=== PATIENT | male | born 1960 | race Caucasian/White ===

== ENCOUNTER 2017-03-14 00:06 | Emergency (ER) | payer BC, OTHER ==
[2017-03-14 00:34] VITALS: BP 140/78
--- NOTE | 2017-03-14 01:02 | ERNOTE ---
Abdominal HPI - General Chief Complaint: Abdominal Pain Time Seen by Provider: 03/14/17 00:54 Source: patient Exam Limitations: no limitations - Immun/Allergies/Home Medications Immunizatons: IMMUNIZATION HX Immunizations Up to Date No History of Influenza Vaccine No Hx Pneumococcal Vaccination No Allergies/Adverse Reactions: Allergies Penicillins Allergy (Unknown, Verified 10/20/16 19:01) Other iv contrast Allergy (Unknown, Uncoded 10/20/16 19:01) Home Medications: HOME MEDICATIONS Tamsulosin HCl [Flomax] 0.4 mg PO BID 07/24/15 [Last Taken 10/07/16 08:00] Acetaminophen [Tylenol] 650 mg PO Q6H PRN #60 tablet 10/09/16 [Last Taken Unknown] Dabigatran Etexilate Mesylate [Pradaxa] 150 mg PO BID #60 capsule 10/09/16 [ Last Taken Unknown] - History of Present Illness Narrative: Pt has had RUQ abdominal pain for 3-4 months Timing: getting worse Quality: moderate Associated Symptoms: Present: denies symptoms Review of Systems - Review of Systems Constitutional: Absent: recent illness, fever, chills EYE: Present: no symptoms reported ENT: Present: no symptoms reported Respiratory: Present: no symptoms reported Cardiology: Present: no symptoms reported Gastrointestinal/Abdominal: Present: See HPI, constipation. Absent: diarrhea Genitourinary: Present: no symptoms reported Musculoskeletal: Present: no symptoms reported Skin: Present: no symptoms reported Neurological: Present: no symptoms reported Endocrine: Present: no symptoms reported Hematologic/Lymphatic: Present: no symptoms reported Psych: Present: no symptoms reported - Patient's Past Medical History Patient History - Medical: Other Patient History - Cardiac/Respiratory: Pulmonary Embolism Patient History - Cancer: Stomach Patient History - Surgical Procedures: Appendectomy, Colonoscopy, EGD, Other Patient History - Other: None - Family History Mother Family History - Medical: History Unknown Father Family History - Medical: History Unknown - Social History Living Situations: significant other Abuse History: No History of abuse Psych History: No pertinent hx Does anyone smoke in the home?: No Alcohol Use: rarely Drug Use: none - Immunizations Immunizations Up to Date: No Hx Pneumococcal Vaccination: No History of Influenza Vaccine: No Physical Exam - Physical Exam General Appearance: Present: wd/wn, alert, no apparent distress Ears, Nose, Throat: Present: normal ENT inspection Neck: Present: normal inspection, nontender Respiratory: Present: no respiratory distress Gastrointestinal/Abdominal: Present: normal bowel sounds, nondistended, tenderness - RUQ and RLQ. Absent: guarding, rebound Back Exam: Present: normal inspection, normal range of motion, no CVA tenderness Extremity Exam: Present: normal inspection, normal range of motion Neurological Exam: Present: alert, oriented, normal mood/affect Skin Exam: Present: normal color, warm/dry ED Progress - Results and Orders Patient's Lab Results:: I have reviewed the patient's lab results. Results and Orders: Laboratory Tests 03/14/17 03/14/17 01:08 01:08 WBC 8.5 Hgb 13.8 Hct 40.1 L Plt Count 207 Sodium 138 Potassium 3.6 Chloride 102 Carbon Dioxide 28.4 Anion Gap 11.2 BUN 24 H BUN/Creatinine Ratio 26.1 H Random Glucose 150 H Calcium 9.0 Calcium Adj for Albumin 9.1 Total Bilirubin 0.5 AST 20 ALT 24 Alkaline Phosphatase 63 Total Protein 7.3 Albumin 3.5 Amylase 62 Lipase 135 - Vital Signs Patient's Vital Signs:: I have reviewed the patient's vital signs. Vital Signs: Vital Signs 03/14/17 00:06 Temperature 36.7 C Pulse Rate 71 Respiratory 18 Rate Blood Pressure 140/78 O2 Sat by Pulse 95 Oximetry - X-Ray X-Ray #1 X-Ray: abdomen Interpretation: Interp. by me X-ray Comments: moderate retained stool especially right side - Progress/Reassessment Chief Complaint: Abdominal Pain Progress:: Unchanged Progress Note-Subjective: 03/14/17 02:33 Discussed results with patient. He states he has MOM at home and will use that tonight. Departure - Departure Clinical Impression: Constipation Qualifiers: Constipation type: chronic idiopathic constipation Qualified Code(s): K59.04 - Chronic idiopathic constipation Disposition: Home self-care Condition: Good Instructions: Constipation, Adult, [id number] Referrals: Mehdi Baxter MD [Primary Care Provider] -
--- OUTSIDE RECORDS SUMMARY | 2017-03-14 01:11 | XMS REPORT | Continuity of Care Document ---
:1960 Author Organization [facility] ([facility]) Address [place] [address] Phone [phone] Care Team Providers Name Role Phone Mehdi Baxter Primary Care Provider [phone] Source Comments This disclosure is being made pursuant to the Care Everywhere program, applicable federal and state laws, and may not contain all informaitonavailable regarding this patient.[facility] ([facility]) Active Allergies and Adverse Reactions Allergen Noted Date Severity Reactions Comments Iodinated Contrast Media - Oral And Iv Dye 06/22/2016 Angioedema Penicillins 07/07/2016 Rash Current Medications Prescription Sig. Disp. Refills Start Date End Date Status tamsulosin 0.4 mg Take 0.8 mg by Active capsule mouth daily. PRADAXA 150 mg capsule Take 150 mg by 2 10/09/2016 Active mouth 2 times daily. diphenhydrAMINE 50 mg Take 1 capsule 1 capsule 5 10/26/2016 Active capsule (50 mg total) by mouth as needed. Take 50 mg [address] scan. PREDNISONE 50 mg tablet Take 50 mg 13 3 tablet 5 10/26/2016 Active hours, 7 hours, and [address] for a total of 3 doses. 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 Factor V Leiden mutation 07/08/2016 History of TIA (transient ischemic attack) 07/08/2016 Benign prostatic hyperplasia without lower urinary tract symptoms 07/08/2016 Most Recent Encounters Date Type Specialty Providers Description 02/14/2017 Orders/Notes [facility] Justin Stein MD 01/25/2017 Office Visit Med Hematology and Justin Stein MD Dx: Malignant Oncology gastrointestinal stromal tumor (GIST) of stomach (Primary Dx) 01/25/2017 Office Visit Srg Oncology Justin Stein MD Dx: Malignant Kannan Gay gastrointestinal stromal tumor (GIST) of stomach (Primary Dx) 01/25/2017 Office Visit Med Hematology and Justin Stein MD Dx: GIST Oncology Romain, (gastrointestinal Norman Chen MD stroma tumor), malignant, colon 01/25/2017 Hospital Radiology Nino Kaminski, Dx: GIST Encounter (gastrointestinal stroma tumor), malignant, colon Social History Tobacco Use Types Packs/Day Years Used Date Former Smoker Cigarettes 0.25 Quit: 11/19/1979 Smokeless Tobacco: Never Used Alcohol Use Drinks/Week oz/Week Comments Yes 1 Cans of beer 0.6 Last Filed Vital Signs Vital Sign Reading Time Taken Blood Pressure 153/79 01/25/2017 10:43 AM [employer]IC [employer] Pulse 73 01/25/2017 10:43 AM [employer] Temperature 36.3 C (97.3 F) 01/25/2017 10:43 AM [employer] Respiratory Rate 16 01/25/2017 10:43 AM [employer] Height 1.778 m (5' 10") 01/25/2017 9:15 AM [employer] Weight 129 kg (284 lb 6.3 oz) 01/25/2017 10:43 AM [employer] Body Mass Index 40.81 01/25/2017 10:43 AM [employer] Oxygen Saturation 95% 01/25/2017 10:43 AM [employer] Plan of Care Date Type Specialty Providers Description 04/26/2017 Appointment Srg Oncology Justin Stein MD [address] [place] [address] [phone] (Fax) Chief Comp: Patient Kannan Gay MD [address] [place] [address] [phone] (Fax) Reported Reason For Visit 04/26/2017 Appointment Med Hematology and Justin Stein MD Chief Comp: Patient Oncology [address] [facility] [place] [address] Visit [phone] (Fax) Health Maintenance Due Date Last Done Comments HCV Screening 1960 Hepatitis B Vaccine (1 of 3 - Primary Series) 1960 Tdap Vaccine 1969 Lipid Disorder Screening 1976 MMR Vaccine 1976 Td Vaccine 1976 Pneumococcal Vaccine (1 of 3 - PCV13) 1977 Colonoscopy 04/16/2008 Prostate Cancer Screening 2008 Influenza Vaccine: Seasonal Completed Results from Last [address] ABDOMEN& PELVIS W CONTRAST (44398) (01/25/2017 8:54 AM) Impressions Impression: 1. New thickening of the lateral conal fascia and lateral peritoneum in the right upper quadrant of the abdomen with a mild infiltration of the adjacent paracolic omentum. As the adjacent colon is unremarkable appearance, this suggests possibility of developing peritoneal carcinomatosis. 2. Chronic scarring in the right lung base. 3. Stable tiny liver lesions. Continue to monitor at follow-up imaging. 4. No lymphadenopathy or evidence for local recurrence. Results of the procedure discussed with: PERSON CONTACTED:Dr Gay DATE: 01/25/2017 TIME CALLED: 1104 hrs PHONE/PAGER:[id number] Narrative Procedure: CT ABDOMEN & PELVIS W CONTRAST (80141) Clinical Indication: Follow-up GIST Technique: CT exam of the abdomen and pelvis with contrast is performed following the uneventful administration of121 cc Isovue-370 IV contrast. Comparison: 10/26/2016, 06/26/2016 Findings: Stable linear atelectasis or scar in the right middle and lower lobe, unchanged from 7 months ago. Stable 6 mm subcapsular low density at the junction of liver segments 6 and 7 medially (image 2-38). Tiny similar sized liver segment 4 subcapsular lesion (image 3-64), also stable. No new hepatic lesions. No biliary duct dilation. Partially calcified small stone in the gallbladder. Splenomegaly at 13.2 cm. Normal pancreas, adrenal glands, and right kidney. Stable presumed cyst left kidney. Scattered small retroperitoneal and mesenteric nodes, no lymphadenopathy. No ascites or free peritoneal air. Surgical staple line in the mid body of the stomach, no evidence for local recurrence. Normal small bowel. Appendix not identified with certainty. There is an increase in infiltration in the omentum and mesentery about the hepatic flexure with a thickening of the peritoneum and lateroconal fascia on the right (image 2-59). Surgical clips suggesting appendectomy. Colon not distended. Scattered sigmoid diverticula. Bladder partially filled and unremarkable. Degenerative changes of the spine. 4 lumbar type vertebra with a transitional vertebra at the lumbosacral junction. Procedure Note Sd, Incoming Imaging Results - Dara Jan 25, 2017 11:06 AM [employer] Procedure: CT ABDOMEN & PELVIS W CONTRAST (24130) Clinical Indication: Follow-up GIST Technique: CT exam of the abdomen and pelvis with contrast is performed following the uneventful administration of 121 cc Isovue-370 IV contrast. Comparison: 10/26/2016, 06/26/2016 Findings: Stable linear atelectasis or scar in the right middle and lower lobe, unchanged from 7 months ago. Stable 6 mm subcapsular low density at the junction of liver segments 6 and 7 medially (image 2-38). Tiny similar sized liver segment 4 subcapsular lesion (image 3-64), also stable. No new hepatic lesions. No biliary duct dilation. Partially calcified small stone in the gallbladder. Splenomegaly at 13.2 cm. Normal pancreas, adrenal glands, and right kidney. Stable presumed cyst left kidney. Scattered small retroperitoneal and mesenteric nodes, no lymphadenopathy. No ascites or free peritoneal air. Surgical staple line in the mid body of the stomach, no evidence for local recurrence. Normal small bowel. Appendix not identified with certainty. There is an increase in infiltration in the omentum and mesentery about the hepatic flexure with a thickening of the peritoneum and lateroconal fascia on the right (image 2-59). Surgical clips suggesting appendectomy. Colon not distended. Scattered sigmoid diverticula. Bladder partially filled and unremarkable. Degenerative changes of the spine. 4 lumbar type vertebra with a transitional vertebra at the lumbosacral junction. IMPRESSION Impression: 1. New thickening of the lateral conal fascia and lateral peritoneum in the right upper quadrant of the abdomen with a mild infiltration of the adjacent paracolic omentum. As the adjacent colon is unremarkable appearance, this suggests possibility of developing peritoneal carcinomatosis. 2. Chronic scarring in the right lung base. 3. Stable tiny liver lesions. Continue to monitor at follow-up imaging. 4. No lymphadenopathy or evidence for local recurrence. Results of the procedure discussed with: PERSON CONTACTED: Dr Gay DATE: 01/25/2017 TIME CALLED: 1104 hrs PHONE/PAGER: [phone]
[2017-03-14 01:16] LABS: Hematocrit 40.1 % (42.0-52.0); Hemoglobin 13.8 gm/dL (13.5-18.0); Mean Cell Volume 85.1 fl (78-100); Mean Corpuscular Hemoglobin 29.3 pg (27-31); Mean Corpuscular Hgb Conc 34.4 g/dl (32-36); Mean Platelet Volume 7.9 fl (6.0-9.5); Neutrophil # 5.3 K/mm3 (1.3-6.0); Platelet Count 207 K/mm3 (150-450); Red Blood Count 4.71 M/mm3 (4.7-6.0); Red Cell Distribution Width 13.5 % (11.5-14.0); White Blood Count 8.5 K/mm3 (4.0-10.5)
[2017-03-14 01:31] LABS: Albumin * 3.5 gm/dl (3.4-5.0); Anion Gap 11.2 mmol/L (6.8-13.8); BUN/Creatinine Ratio 26.1 (9.0-21.6); Bilirubin, Total 0.5 mg/dL (0.0-1.1); Ca. Corrected For Albumin 9.1 mg/dL (8.4-10.2); Carbon Dioxide 28.4 mmol/L (24-32.6); Potassium 3.6 mmol/L (3.4-4.6); Total Protein 7.3 gm/dL (6.2-8.2)
== END 2017-03-14 02:36 | disposition home or self-care (01) ==
LOC: ER 00:06
DX: K59.04 Chronic idiopathic constipation (principal); Z86.711 Personal history of pulmonary embolism; Z79.01 Long term (current) use of anticoagulants; Z85.028 Personal history of other malignant neoplasm of stomach

== ENCOUNTER 2017-06-18 17:14 | Emergency (ER) | payer BC, OTHER ==
[2017-06-18 17:30] VITALS: BP 153/91
--- NOTE | 2017-06-18 18:02 | ERNOTE ---
Medical Problem HPI - Narrative Date of Service: 06/18/17 - General Chief Complaint: General Assessment Time Seen by Provider: 06/18/17 17:43 Source: patient Exam Limitations: no limitations - Immun/Allergies/Home Medications Immunizations: IMMUNIZATION HX Immunizations Up to Date No History of Influenza Vaccine No Hx Pneumococcal Vaccination No Allergies/Adverse Reactions: Allergies Penicillins Allergy (Unknown, Verified 06/18/17 17:29) Other iv contrast Allergy (Unknown, Uncoded 06/18/17 17:29) Home Medications: HOME MEDICATIONS Tamsulosin HCl [Flomax] 0.4 mg PO BID 07/24/15 [Last Taken 10/07/16 08:00] Acetaminophen [Tylenol] 650 mg PO Q6H PRN #60 tablet 10/09/16 [Last Taken Unknown] Dabigatran Etexilate Mesylate [Pradaxa] 150 mg PO BID #60 capsule 10/09/16 [ Last Taken Unknown] - History of Present History Narrative: Pt. comes in with c/o possible hernia. Pt. states that over the past month he has noticed that he has a small bump in his abdomen near his umbilicus. Pt. denies any SOB, CP, NVD fever, recent illness, constipation, hematemasis, or melena. Pt. denies any prehospitla treatment or alleviating factors but statet aht the bump comes out when he sits up or strains. Review of Systems - Review of Systems Constitutional: Present: no symptoms reported. Absent: recent illness, fever, chills, weakness, fatigue, malaise EYE: Present: no symptoms reported ENT: Present: no symptoms reported Respiratory: Present: no symptoms reported. Absent: shortness of breath, cough , wheezing Cardiology: Present: no symptoms reported. Absent: chest pain, palpitations, edema Gastrointestinal/Abdominal: Present: no symptoms reported. Absent: nausea, vomiting, diarrhea, abdominal pain Genitourinary: Present: no symptoms reported. Absent: frequency, pain, hematuria, decreased urinary output Musculoskeletal: Present: no symptoms reported. Absent: back pain, joint pain Skin: Present: lumps - near umbilicus. Absent: rash, dryness, change in color Neurological: Present: no symptoms reported. Absent: headache, dizziness/light- headedness, numbness, tingling Hematologic/Lymphatic: Present: no symptoms reported. Absent: easy bruising, easy bleeding All Other Systems: All systems neg except as marked - Patient's Past Medical History Patient History - Cardiac/Respiratory: Pulmonary Embolism Patient History - Cancer: Stomach Patient History - Surgical Procedures: Appendectomy, Colonoscopy, EGD, Other - Colectomy Patient History - Other: None - Family History Mother Family History - Medical: History Unknown Father Family History - Medical: History Unknown - Social History Living Situations: home Abuse History: No History of abuse Psych History: No pertinent hx Does anyone smoke in the home?: No Alcohol Use: rarely Drug Use: none - Immunizations Immunizations Up to Date: No Hx Pneumococcal Vaccination: No History of Influenza Vaccine: No Physical Exam - Physical Exam General Appearance: Present: wd/wn, alert, no apparent distress Head Exam: Present: normal inspection, no evidence of injury Eye Exam: Normal inspection: bilateral, PERRL: bilateral, EOMI: bilateral Ears, Nose, Throat: Present: normal ENT inspection, normal pharynx Neck: Present: normal inspection, nontender. Absent: lymphadenopathy (R), lymphadenopathy (L) Respiratory: Present: no respiratory distress, normal breath sounds, no accessory muscle use, chest nontender, lungs clear Cardiovascular/Chest: Present: regular rate, rhythm, no murmur, normal peripheral pulses Gastrointestinal/Abdominal: Present: normal bowel sounds, nontender, nondistended, soft, no organomegaly, hernia - 0.5cm umbilical hernia reduces with laying flat and with palpation Back Exam: Present: normal inspection Extremity Exam: Present: normal inspection, non-tender, normal range of motion, no edema Neurological Exam: Present: alert, oriented, normal mood/affect, no motor/ sensory deficits Skin Exam: Present: normal color, warm/dry. Absent: pallor, skin rash ED Progress - Date and Time Seen: Date and Time: 06/18/17 17:57 As hernia is easily reducible and not causing pt. any pain or bowel problems at this time. Pt. has an appointment with his surgeon and feel that he is safe to follow up at this time with him unless complication arrive prior to this visit. - Vital Signs Patient's Vital Signs:: I have reviewed the patient's vital signs. Vital Signs: Vital Signs 06/18/17 17:20 Temperature 36.5 C Pulse Rate 83 Respiratory 12 Rate Blood Pressure 153/91 O2 Sat by Pulse 98 Oximetry - Progress/Reassessment Chief Complaint: General Assessment Departure - Departure Clinical Impression: Umbilical hernia Qualifiers: Obstruction and gangrene presence: without obstruction or gangrene Qualified Code(s): K42.9 - Umbilical hernia without obstruction or gangrene Disposition: Home self-care Condition: Good Instructions: Hernia, Adult Additional Instructions: Please follow up with surgeon as planned and avoid heavy lifting when possible.
== END 2017-06-18 18:10 | disposition home or self-care (01) ==
LOC: ER 17:14
DX: K42.9 Umbilical hernia without obstruction or gangrene (principal); Z86.711 Personal history of pulmonary embolism; Z79.01 Long term (current) use of anticoagulants; Z85.028 Personal history of other malignant neoplasm of stomach